=== PATIENT | female | born 1985 | race Caucasian/White ===

== ENCOUNTER 2019-12-19 06:22 | Emergency (ER) | payer MEDICAID, OTHER ==
[~2019-12-19] VITALS: Ht 154.9 cm; Wt 74.8 kg
[~2019-12-19 06:22] MED LIST: FERR-252 PO; PREN-385 PO
[2019-12-19 06:30] VITALS: BP 104/68
--- NOTE | 2019-12-19 06:45 | NUR ---
34 Y/O FEMALE PRESENTS TO ED, C/O FEVER X4 DAYS. PT STATES HAVING A TEMP OF 104 AT HOME; PT AFEBRILE DURING ASSESSMENT, 98.5 ORAL. PT STATES HAVING BODYACHES AND HEADACHE, 9/10. PT ABLE TO AMBULATE WITH STEADAY GAIT. PT C/O DRY COUGH ALONG WITH THROAT PAIN. LUNG SOUNDS BILAT CLEAR. NO SOB/DIFFICULTY BREATHING NOTED. PT VSS. ERMD AWARE. WILL CONTINUE TO MONITOR.
--- NOTE | 2019-12-19 06:46 | NUR ---
AT BEDSIDE WITH PT
--- NOTE | 2019-12-19 06:47 | NUR ---
PT UNABLE TO PROVIDE URINE AT THIS TIME
--- NOTE | 2019-12-19 07:16 | NUR ---
REPORT RECEIVED FROM SOLEDAD COLON FOR CHANGE OF SHIFT.
--- NOTE | 2019-12-19 07:17 | NUR ---
PT RESTING COMFORTABLY, PT STATES PAIN 7/10 LOWER BACK. PT AMBULATED WITHOUT DIFFICULTY TO RESTROOM TO GIVE UA.
--- NOTE | 2019-12-19 07:24 | NUR ---
PT UNABLE TO GIVE UA AT THIS TIME.
--- NOTE | 2019-12-19 07:55 | NUR ---
DR. ROTHMAN AT BEDSIDE EXAMING PATIENT.
[2019-12-19] MEDS ORDERED: NACL 0.9% 1,000 ML IV SCH (07:56)
--- NOTE | 2019-12-19 08:05 | NUR ---
IV established to left AC, blood drawn and sent to lab. Flushed with 10cc flush, no signs of infiltration or erythema. Pt tolerated well.
--- NOTE | 2019-12-19 08:17 | NUR ---
PT HAS TEMPERATURE OF 101.4, NOTIFIED.
[2019-12-19 08:27] LABS: BASOPHILS % (AUTO) 0.5 % (0.0-2.0); HEMATOCRIT 31.7 % (36-48); LYMPHOCYTES # (AUTO) 0.5 K/uL (2.5-16.5); LYMPHOCYTES % (AUTO) 5.5 % (20.5-51.1); MEAN CORPUSCULAR HEMOGLOBIN 21 pg (27-31); MEAN CORPUSCULAR HGB CONC 32 g/dL (33-37); MEAN CORPUSCULAR VOLUME 67.2 fL (80-94); MONOCYTES # (AUTO) 0.5 K/uL (0.8-1.0); MONOCYTES % (AUTO) 6.4 % (1.7-9.3); NEUTROPHILS # (AUTO) 7.2 K/uL (1.8-7.7); NEUTROPHILS % (AUTO) 87.6 % (42.2-75.2); PLATELET COUNT (AUTO) 214 K/uL (140-450); RED BLOOD CELL COUNT(AUTO) 4.71 MIL/uL (4.20-5.40); WHITE BLOOD COUNT (AUTO) 8.2 K/uL (4.8-10.8)
--- NOTE | 2019-12-19 08:40 | NUR ---
X-RAY TECH AT BEDSIDE PERFORMING ORDERED X-RAY.
[2019-12-19 08:48] LABS: BARBITURATE, URINE NEG. ng/ml (NEG <=200); BENZODIAZEPINE, URINE NEG. ng/mL (NEG <=200); CANNABINOID, URINE NEG. ng/mL (NEG <=50); COCAINE, URINE NEG. ng/mL (NEG <=300); OPIATE, URINE NEG. ng/mL (NEG <=2000); PHENCYCLIDINE SCREEN,URINE NEG. ng/mL (NEG <=25)
[2019-12-19 08:48] LABS: ANION GAP 17.4 (8-16); POTASSIUM 3.4 mmol/L (3.5-5.1); TOTAL BILIRUBIN 0.5 mg/dL (0.0-1.0)
--- NOTE | 2019-12-19 08:55 | NUR ---
PT RESTING COMFORTABLY, INFORMED WAITING FOR TEST RESULTS TO RETURN. AT BEDSIDE. TEMPERATURE DOWN FROM 101.4 TO 100.O.
--- NOTE | 2019-12-19 09:13 | NUR ---
PT AMBULATED TO RESTROOM WITHOUT DIFFICULTY TO GIVE ADDITIONAL UA FOR TESTING.
[2019-12-19] MEDS ORDERED: cefTRIAXone 1,000 MG VIAL ONE (09:30)
--- NOTE | 2019-12-19 09:44 | NUR ---
PT ANTIBIOTICS RUNNING LT AC 20G WITHOUT DIFFICULTY. PT RESTING COMFORTABLY, AT BEDSIDE.
[2019-12-19] MEDS ORDERED: KETOROLAC 30 MG/ML VIAL IVP ONE (09:50)
[2019-12-19 10:17] VITALS: BP 108/69
--- NOTE | 2019-12-19 10:17 | NUR ---
Patient discharged with v/s stable. Written and verbal after care instructions given and explained. Patient alert, oriented and verbalized understanding of instructions. Ambulatory with steady gait. All questions addressed prior to discharge. ID band removed. Patient advised to follow up with PMD. Rx of MOTRIN, BACTRIM DS given. Patient educated on indication of medication including possible reaction and side effects. Opportunity to ask questions provided and answered.
== END 2019-12-19 10:17 | disposition home or self-care (01) ==
LOC: MED 06:22
DX: N39.0 Urinary tract infection, site not specified (principal)
CPT/HCPCS: 36415; 71045; 80053; 80305; 81002; 81025; 83605; 85025; 87040; 93005; 96365; 96375; 99284; J0696; J1885; J7030; Q0092; 87186

== ENCOUNTER 2020-02-02 18:36 | Emergency (ER) | payer MEDICAID ==
[~2020-02-02] VITALS: Ht 154.9 cm; Wt 74.8 kg
--- NOTE | 2020-02-02 18:49 | NUR ---
PT AMBULATED TO BED 2.
[2020-02-02 19:00] VITALS: BP 152/106
--- NOTE | 2020-02-02 19:13 | NUR ---
34 YEAR OLD FEMALE COMPLAINS OF LEFT THIGH ABSCESS X 1 WEEK. PATIENT STATES PAIN 10/10 ESPECIALLY WHEN WALKING. RED RAISED BUMP ON LEFT THIGH PRESENT. PATIENT AOX4, BREATHING EVEN AND UNLABORED, SKIN WARM AND DRY. BED IN LOWEST POSITION, LOCKED, BED RAIL UPX1. AT BEDSIDE. PMH - DENIES ALLERGIES - NKA
[2020-02-02] MEDS ORDERED: LIDOCAINE MPF 1% 10 MG/ML VIAL INJ ONE (19:40)
--- NOTE | 2020-02-02 19:47 | NUR ---
XYLOCAINE AT BEDSIDE
--- NOTE | 2020-02-02 19:55 | NUR ---
LACERATION TRAY SETUP COMPLETE
[2020-02-02 20:38] VITALS: BP 146/98
--- NOTE | 2020-02-02 20:38 | NUR ---
Patient discharged with v/s stable. Written and verbal after care instructions about abscess given and explained. Patient alert, oriented and verbalized understanding of instructions. Ambulatory with steady gait. All questions addressed prior to discharge. ID band removed. Patient advised to follow up with PMD. Rx of ibuprofen and keflex given. Patient educated on indication of medication including possible reaction and side effects. Opportunity to ask questions provided and answered.
== END 2020-02-02 20:38 | disposition home or self-care (01) ==
LOC: MED 18:36
DX: L02.416 Cutaneous abscess of left lower limb (principal); Z98.890 Other specified postprocedural states
CPT/HCPCS: 10060; 96372; 99283; J2001; 99282

== ENCOUNTER 2020-02-04 20:21 | Emergency (ER) | payer SELFPAY ==
[~2020-02-04] VITALS: Ht 154.9 cm; Wt 74.8 kg
[2020-02-04 20:30] VITALS: BP 129/98
--- NOTE | 2020-02-04 20:33 | NUR ---
TO LOBBY A/W BED AMBULATORY
--- NOTE | 2020-02-04 22:34 | NUR ---
PATIENT AMB TO [facility]
--- NOTE | 2020-02-04 22:38 | NUR ---
PATIENT BEING SEEN BY DR. ROQUE.
[2020-02-04 22:52] VITALS: BP 129/98
--- NOTE | 2020-02-04 22:52 | NUR ---
PATIENT GIVEN TREATED AND DISCHARGED BY DR. ROQUE. PATIENT AMB WITH STEADY GAIT.
== END 2020-02-04 22:51 | disposition home or self-care (01) ==
LOC: MED 20:21
DX: L02.416 Cutaneous abscess of left lower limb (principal); Z48.00 Encounter for change or removal of nonsurgical wound dressing
CPT/HCPCS: 99282